=== PATIENT | female | born 1960 | race Caucasian/White ===

== ENCOUNTER → 2018-07-26 10:41 | Outpatient (CLI) | payer OTHER, SELFPAY ==
[2018-07-26 12:30] LABS: Glucose 100 mg/dL (70-100)
[2018-07-26 12:31] LABS: Alanine Aminotransferase 38 IU/L (9-52); Albumin 4.4 g/dL (3.5-5.0); Albumin Globulin Ratio 1.3 (1.0-2.8); Alkaline Phosphatase 93 U/L (38-126); Aspartate Aminotransferase 45 IU/L (14-36); Bilirubin Total 0.5 mg/dL (0.2-1.3); Bilirubin Unconjugated 0.3 mg/dL (0.0-1.1); Cholesterol 265 mg/dL (140-199); Globulin 3.3 g/dL (1.7-4.1); HDL Cholesterol 51 mg/dL (40-60); HEMOLYSIS < 15 (0-50); LDL Cholesterol Calculated 169 mg/dL (<100); Total Protein 7.7 g/dL (6.3-8.2); Triglycerides 227 mg/dL (35-150)
[2018-07-26 12:38] LABS: Vitamin D 25 Hydroxy (D3) 39.3 ng/mL (30.0-100.0)
[2018-07-26 12:55] LABS: Free T4, Direct Thyroxine 0.91 ng/dL (0.78-2.19)
[2018-07-26 13:08] LABS: Thyroid Stimulating Hormone 3.58 uIU/mL (0.47-4.68)
[2018-07-28 14:02] LABS: Thyroglobulin Antibodies < 1 IU/mL (< 2); Thyroglobulin Level 7.6 ng/mL (2.8-40.9); Thyroid Peroxidase Antibodies 6 IU/mL (< 9)
[2018-07-28 16:11] LABS: Leptin 11.9 ng/mL
[2018-07-30 15:10] LABS: Triiodothyronine T3 Reverse 16 ng/dL (8-25)
== END ==
PROVIDERS: PCP Physician Assistant; Visit Provider Psychiatry & Neurology Psychiatry
DX: E03.9 Hypothyroidism, unspecified (principal)
CPT/HCPCS: 36415; 80061; 80076; 82306; 82397; 82542; 82947; 84432; 84439; 84443; 84481; 84482; 86376; 86800

== ENCOUNTER → 2018-08-01 15:49 | Outpatient (CLI) | payer OTHER, SELFPAY ==
--- NOTE | 2018-08-01 | DI.MG.S_ITS ---
BILATERAL DIGITAL SCREENING MAMMOGRAM 3D/2D WITH CAD: 08/01/2018 CLINICAL: Routine screening. Comparison is made to exam dated: [facility]/20/[facility]. There are scattered fibroglandular elements in both breasts. Current study was also evaluated with a Computer Aided Detection (CAD) system. No significant masses, calcifications, or other findings are seen in either breast. There has been no significant interval change. IMPRESSION: NEGATIVE There is no mammographic evidence of malignancy. A 1 year screening mammogram is recommended. This exam was interpreted at Station ID: [id number]. NOTE: For mammograms, a report in lay terms will be sent to the patient. Approximately 15% of breast malignancies will not be visualized mammographically. In the management of a palpable breast mass, a negative mammogram must not discourage biopsy of a clinically suspicious lesion. Electronically Signed By: Kade mckeon/renzo:08/01/2018 18:34:57 letter sent: Normal Exam ACR BI-RADS Category 1: Negative 3341F
== END ==
PROVIDERS: PCP Physician Assistant; Visit Provider Physician Assistant
DX: Z12.31 Encounter for screening mammogram for malignant neoplasm of breast (principal)
CPT/HCPCS: 77063; 77067

== ENCOUNTER → 2018-09-13 16:38 | Outpatient (CLI) | payer OTHER, SELFPAY ==
--- NOTE | 2018-09-13 | DI.RAD.S_ITS ---
PROCEDURE: XR LUMBAR SPINE 2-3V INDICATIONS: Low back pain TECHNIQUE: 3 views of the lumbar spine were acquired. COMPARISON: None. FINDINGS: Bones: 5 [id number] vertebrae are present. There is moderate S-shaped gliosis. normal bony alignment. No vertebral body compression fractures. No suspicious bony lesions. Large lateral osteophytes are present at L3-L4 on the right, and L4-L5 and L5-S1 on the left. There is degenerative disc disease, moderate at L3-L4 and L4-L5, mild at L1-L2, L2 and L3 and L5-S1. There is moderate facet arthropathy at L3-L4, L4-L5 and L5-S1. Soft tissues: Overlying bowel gas pattern is normal. No suspicious soft tissue calcifications. IMPRESSION: 1. Scoliosis. 2. Degenerative disc and facet disease as described. Dictated by: Larry Herrera M.D. on 09/13/2018 at 17:36 Approved by: Larry Herrera M.D. on 09/13/2018 at 17:39
== END ==
LOC: DI 16:39
PROVIDERS: PCP Physician Assistant; Visit Provider Physician Assistant
DX: M54.5 Low back pain (principal); M41.9 Scoliosis, unspecified; M51.36 Other intervertebral disc degeneration, lumbar region; M51.37 Other intervertebral disc degeneration, lumbosacral region; M47.816 Spondylosis without myelopathy or radiculopathy, lumbar region; M47.817 Spondylosis without myelopathy or radiculopathy, lumbosacral region
CPT/HCPCS: 72100

== ENCOUNTER → 2020-05-01 10:05 | Outpatient (CLI) | payer OTHER, SELFPAY ==
--- NOTE | 2020-05-01 10:07 | DI.RAD.S_ITS ---
PROCEDURE: XR LUMBAR SPINE MIN 4V INDICATIONS: left LBP TECHNIQUE: 5 views of the lumbar spine were acquired. COMPARISON: [facility], , XR LUMBAR SPINE 2-3V, 09/13/2018, 16:42. FINDINGS: Bones: No fracture. Partially visualized lateral curvature of the spine. Multilevel degenerative endplate sclerosis and spurring. Diffuse facet arthropathy. Severe narrowing of the lumbar disc spaces, although moderate narrowing is seen at L1-L2 and L5-S1. Grade 1 anterolisthesis of L4 on L5. Soft tissues: Overlying bowel gas pattern is normal. No suspicious soft tissue calcifications. Oblique images: No pars defects. IMPRESSION: Severe multilevel lumbar spondylosis and facet disease, grossly unchanged since 09/13/18 Dictated by: Sesar Rayo M.D. on 05/01/2020 at 11:20 Approved by: Sesar Rayo M.D. on 05/01/2020 at 11:22
--- NOTE | 2020-05-01 10:07 | DI.RAD.S_ITS ---
PROCEDURE: XR KNEE LT 3V INDICATIONS: knee pain TECHNIQUE: 3 views of the knee were acquired. COMPARISON: None. FINDINGS: Bones: No fractures or dislocations. No suspicious bony lesions. Scattered degenerative subchondral sclerosis and spurring. Soft tissues: No joint effusion. No suspicious soft tissue calcifications. IMPRESSION: Minimal degenerative changes. If the patient's pain or other symptoms persist, consider further evaluation with MRI Dictated by: Sesar Rayo M.D. on 05/01/2020 at 11:33 Approved by: Sesar Rayo M.D. on 05/01/2020 at 11:34
--- NOTE | 2020-05-01 10:07 | DI.RAD.S_ITS ---
PROCEDURE: XR CERVICAL SPINE 4V OR 5V INDICATIONS: Cervical radiculopathy TECHNIQUE: 5 views of the cervical spine acquired. COMPARISON: None. FINDINGS: Bones: No fracture. Levocurvature. Multilevel degenerative endplate sclerosis and spurring. Diffuse facet arthropathy. . Severe narrowing of the cervical disc spaces from the level of C4-T1. There is moderate narrowing of the C2-C3 and C7-T1 disc spaces. On the right, there is mild diffuse bony foraminal narrowing at all levels except for C2-C3. On the left, mild bony foraminal stenosis seen at the C4-C5, C5-C6 and C6-C7 levels. Soft tissues: No prevertebral soft tissue swelling. IMPRESSION: Multilevel severe cervical spondylosis and facet disease, with levocurvature Bilateral bony foraminal stenoses as above Dictated by: Sesar Rayo M.D. on 05/01/2020 at 11:02 Approved by: Sesar Rayo M.D. on 05/01/2020 at 11:05
== END ==
PROVIDERS: PCP Physician Assistant; Referring Provider Physical Medicine & Rehabilitation; Visit Provider Physical Medicine & Rehabilitation
DX: M54.5 Low back pain (principal); M47.816 Spondylosis without myelopathy or radiculopathy, lumbar region; M17.12 Unilateral primary osteoarthritis, left knee; M47.812 Spondylosis without myelopathy or radiculopathy, cervical region; M48.02 Spinal stenosis, cervical region; M41.20 Other idiopathic scoliosis, site unspecified; M50.20 Other cervical disc displacement, unspecified cervical region
CPT/HCPCS: 72050; 72110; 73562

== ENCOUNTER → 2020-06-08 19:25 | Outpatient (ROUT) | payer OTHER, SELFPAY ==
[2020-06-08 19:35] LABS: Add Manual Diff / Slide Review NO; Basophils Absolute Auto 0 /uL (0-100); Basophils Percent Auto 0.8 % (0-2); Eosinophils Absolute Auto 100 /uL (0-450); Eosinophils Percent Auto 1.7 % (2-4); Hematocrit 41.5 % (36-46); Lymphocytes Absolute Auto 1800 /uL (1100-4500); Lymphocytes Percent Auto 31.7 % (25-40); Mean Corpuscular HGB Conc 33.7 % (30-36); Monocytes Absolute Auto 500 /uL (0-900); Monocytes Percent Auto 7.9 % (3-14); Neutrophils Absolute Auto 3400 /uL (1500-7000); Neutrophils Percent Auto 57.9 % (50-75); Platelet Count 261 X10^3/uL (150-400); Red Blood Cell Count 4.23 X10^6/uL (4.0-5.2); Red Cell Distribution Width 13.1 % (11.6-14.8); White Blood Cell Count 5.8 X10^3/uL (4.5-11.0)
[2020-06-08 19:45] LABS: Alanine Aminotransferase 26 IU/L (<35); Albumin 4.4 g/dL (3.5-5.0); Albumin Globulin Ratio 1.5 (1.0-2.8); Alkaline Phosphatase 85 U/L (38-126); Aspartate Aminotransferase 38 IU/L (14-36); BUN Creatinine Ratio 29.5 (6-22); Bilirubin Total 0.5 mg/dL (0.2-1.3); Blood Urea Nitrogen 23 mg/dL (7-17); Calcium 9.4 mg/dL (8.4-10.2); Carbon Dioxide 27 mmol/L (22-32); Chloride 105 mmol/L (98-107); Cholesterol 253 mg/dL (140-199); Estimated Glomerular Filt Rate > 60.0 mL/min (>60); Glucose 101 mg/dL (80-110); HDL Cholesterol 58 mg/dL (40-60); HEMOLYSIS < 15 (0-50); LDL Cholesterol Calculated 149 mg/dL (<100); Potassium 4.5 mmol/L (3.4-5.1); Sodium 137 mmol/L (137-145); Total Protein 7.4 g/dL (6.3-8.2); Triglycerides 231 mg/dL (35-150)
[2020-06-08 20:02] LABS: Free T4, Direct Thyroxine 0.96 ng/dL (0.78-2.19)
[2020-06-08 20:13] LABS: Vitamin D 25 Hydroxy (D3) 29.9 ng/mL (30.0-100.0)
[2020-06-08 20:16] LABS: Thyroid Stimulating Hormone 3.62 uIU/mL (0.47-4.68)
[2020-06-08 20:34] LABS: Vitamin B12 405 pg/mL (239-931)
== END ==
PROVIDERS: PCP Physician Assistant; Visit Provider Physician Assistant
DX: R53.83 Other fatigue (principal); E78.5 Hyperlipidemia, unspecified; E55.9 Vitamin D deficiency, unspecified; E53.9 Vitamin B deficiency, unspecified; E66.9 Obesity, unspecified
CPT/HCPCS: 80053; 80061; 82306; 82607; 84439; 84443; 85025

== ENCOUNTER → 2020-10-14 15:57 | Outpatient (CLI) | payer OTHER, SELFPAY ==
[2020-10-14] MEDS: COVID-19 VACC #1, MRNA(MOD) 100 MCG/0.5 ML VIAL IM (16:04)
== END ==
PROVIDERS: PCP Physician Assistant; Visit Provider Internal Medicine
DX: Z23 Encounter for immunization (principal)
CPT/HCPCS: 0011A; 91301

== ENCOUNTER → 2020-11-11 15:20 | Outpatient (CLI) | payer OTHER, SELFPAY ==
[2020-11-11] MEDS: COVID-19 VACC #2, MRNA(MOD) 100 MCG/0.5 ML VIAL IM (15:35)
== END ==
PROVIDERS: PCP Physician Assistant; Visit Provider Internal Medicine
DX: Z23 Encounter for immunization (principal)
CPT/HCPCS: 0012A; 91301

== ENCOUNTER → 2020-11-19 17:55 | Outpatient (CLI) | payer OTHER, SELFPAY ==
--- NOTE | 2020-11-19 | DI.RAD.S_ITS ---
PROCEDURE: XR ELBOW RT MIN 3V INDICATIONS: ACUTE PAIN OF RIGHT SHOULDER, PAIN IN RT ARM TECHNIQUE: 3 views of the elbow were acquired. COMPARISON: None. FINDINGS: Bones: No fractures or dislocations. No suspicious bony lesions. Minimal hypertrophic spurring. Small olecranon bone spur. Soft tissues: No elbow joint effusion. No suspicious soft tissue calcifications. Curvilinear density seen adjacent to the lateral distal humeral epicondyle. IMPRESSION: 1. Minimal elbow joint degeneration and olecranon bone spur. 2. Curvilinear density adjacent to the lateral distal humeral epicondyle which can be associated with epicondylitis. Correlate clinically. Dictated by: Satish Lopez [facility] Interpreted: Jesús Phillips MD on 11/20/2020 at 9:08 Approved by: Jesús Phillips M.D. on 11/20/2020 at 10:22
--- NOTE | 2020-11-19 | DI.RAD.S_ITS ---
PROCEDURE: XR SHOULDER RT MIN 2V INDICATIONS: ACUTE PAIN RT SHOULDER, PAIN IN RT ARM TECHNIQUE: 2 views of the shoulder were acquired. COMPARISON: [facility], , SHOULDER MINIMUM 2 VIEW LEFT, 12/01/2010, 20:23. FINDINGS: Bones: Cortical irregularity and lucency along the mid aspect of the glenoid rim which could represent glenoid fracture. Mild joint narrowing with periarticular osteophyte formation. Mild superior migration of the humeral head. Soft tissues: No suspicious soft tissue calcifications. IMPRESSION: 1. Cortical and regularity lucency along the margin of the mid glenoid rim which could represent glenoid fracture. Recommend clinical correlation and if indicated, CT could be performed for further assessment. 2. Mild acromioclavicular and glenohumeral joint degeneration. Dictated by: Satish Lopez [facility] Interpreted: Jesús Phillips MD on 11/20/2020 at 9:33 Approved by: Jesús Phillips M.D. on 11/20/2020 at 10:23
== END ==
PROVIDERS: PCP Physician Assistant; Referring Provider Physician Assistant; Visit Provider Physician Assistant
DX: M25.511 Pain in right shoulder (principal); M79.601 Pain in right arm; M19.011 Primary osteoarthritis, right shoulder
CPT/HCPCS: 73030; 73080

== ENCOUNTER → 2021-06-16 11:27 | Outpatient (CLI) | payer OTHER, SELFPAY ==
--- NOTE | 2021-06-16 | DI.MG.S_ITS ---
BILATERAL DIGITAL SCREENING MAMMOGRAM 3D/2D WITH CAD: 06/16/2021 CLINICAL: Routine screening. Comparison is made to exams dated: 08/01/2018 mammogram and 04/20/2016 mammogram - [facility]. There are scattered fibroglandular elements in both breasts. Current study was also evaluated with a Computer Aided Detection (CAD) system. No significant masses, calcifications, or other findings are seen in either breast. There has been no significant interval change. IMPRESSION: NEGATIVE There is no mammographic evidence of malignancy. A 1 year screening mammogram is recommended. This exam was interpreted at Station ID: [id number]. NOTE: For mammograms, a report in lay terms will be sent to the patient. Approximately 15% of breast malignancies will not be visualized mammographically. In the management of a palpable breast mass, a negative mammogram must not discourage biopsy of a clinically suspicious lesion. Electronically Signed By: Joesph tang/renzo:06/16/2021 12:08:01 letter sent: Normal Exam ACR BI-RADS Category 1: Negative 3341F
== END ==
PROVIDERS: PCP Physician Assistant; Referring Provider Physician Assistant; Visit Provider Physician Assistant
DX: Z12.31 Encounter for screening mammogram for malignant neoplasm of breast (principal)
CPT/HCPCS: 77063; 77067

== ENCOUNTER → 2024-01-10 07:59 | Outpatient (CLI) | payer OTHER, MEDICAID, SELFPAY ==
--- NOTE | 2024-01-10 08:02 | DI.MG.S_ITS ---
BILATERAL DIGITAL SCREENING MAMMOGRAM 3D/2D WITH CAD: 01/10/2024 CLINICAL: Routine screening. Comparison is made to exams dated: 06/16/2021 mammogram, 08/01/2018 mammogram, and 04/20/2016 mammogram - [facility]. There are scattered areas of fibroglandular density in both breasts (category b / 25%-50% glandular tissue). Current study was also evaluated with a Computer Aided Detection (CAD) system. No significant masses, calcifications, or other findings are seen in either breast. There has been no significant interval change. IMPRESSION: NEGATIVE There is no mammographic evidence of malignancy. A 1 year screening mammogram is recommended. Based on the Tyrer Cuzick model (a risk assessment model) the patient's lifetime risk is 6.1% and her 10 year risk is 2.7%. According to the ACR, ACS, and NCCN guidelines, an annual breast MRI exam along with mammogram is recommended if the patient's lifetime risk is 20% or greater. This exam was interpreted at Station ID: [id number]. NOTE: For mammograms, a report in lay terms will be sent to the patient. Approximately 15% of breast malignancies will not be visualized mammographically. In the management of a palpable breast mass, a negative mammogram must not discourage biopsy of a clinically suspicious lesion. Electronically Signed By: Will parker/renzo:01/10/2024 12:45:29 letter sent: Normal Exam ACR BI-RADS Category 1: Negative 3341F
== END ==
PROVIDERS: PCP Physician Assistant; Referring Provider Physician Assistant; Visit Provider Physician Assistant
DX: Z12.31 Encounter for screening mammogram for malignant neoplasm of breast (principal); R92.323 Mammographic fibroglandular density, bilateral breasts
CPT/HCPCS: 77063; 77067

== ENCOUNTER → 2025-04-23 15:20 | Outpatient (CLI) | payer OTHER, SELFPAY ==
--- NOTE | 2025-04-23 15:24 | DI.MRI.S_ITS ---
PROCEDURE: MR ANKLE LT WO CON INDICATIONS: PAIN IN LEFT ANKLE TECHNIQUE: Noncontrast sagittal T1 spin echo and T2 fast spin echo with fat saturation, axial proton density fast spin echo and T2 fast spin echo with fat saturation, coronal T1 spin echo and T2 fast spin echo with fat saturation through the ankle/hindfoot. COMPARISON: [facility] [place], CR, XR FOOT 3 VIEWS WEIGHT BEARING LEFT, 09/26/2024, 9:07. FINDINGS: Quality: Adequate Extensor tendons: Unremarkable Medial ankle tendons: Posterior tibialis tendon: Intact. Flexor digitorum longus tendon: Intact. Flexor hallucis longus tendon: Intact. Medial ankle ligaments: Deltoid ligament, superficial and deep: Intact Spring ligaments: Intact. Lateral ankle tendons: Peroneus brevis tendon: Intact. Peroneus longus tendon: Intact. Lateral ankle ligaments: Tibiofibular ligaments: Intact Anterior talofibular ligament: Intact. Posterior talofibular ligament: Intact. Calcaneofibular ligament: Intact. Achilles tendon: Mild tendinopathy. No tear Plantar fascia: Thickening and increased signal at the calcaneal attachment with spurring but no edema. Sinus tarsi: Unremarkable. Tarsal tunnel: Unremarkable. Cartilage: Mild degenerative changes at the naviculocuneiform and 2nd tarsometatarsal joint with subchondral cyst formation. Bones: No fracture. Joints: No effusion. Other: Nonspecific diffuse subcutaneous edema. IMPRESSION: Mild degenerative changes at the midfoot. Chronic plantar fasciitis. Mild Achilles tendinopathy. No acute sprain or fracture. Dictated by: Teja Yip M.D. on 04/24/2025 at 9:01 Approved by: Teja Yip M.D. on 04/24/2025 at 9:05
== END ==
LOC: MRI 15:22
PROVIDERS: PCP Physician Assistant; Referring Provider Orthopaedic Surgery Foot and Ankle Surgery; Visit Provider Orthopaedic Surgery Foot and Ankle Surgery
DX: M25.572 Pain in left ankle and joints of left foot (principal); M72.2 Plantar fascial fibromatosis; M19.072 Primary osteoarthritis, left ankle and foot
CPT/HCPCS: 73721